=== PATIENT | female | born 1955 | race Caucasian/White ===

== ENCOUNTER → 2017-07-19 | Outpatient (CLI) | payer BC ==
[~2017-07-19] MED LIST: AMARYL PO; AMBIEN10 MG PO; COATED ASPIRIN325 M1 PO; COREG3.125 MG PO; LIPITOR PO; LIPITOR20 MG PO; LISINOPRIL20 MG PO; LOSARTAN-HCTZ1 EAC2 PO; METFORMIN HCL500 M1 PO; NEXIUM PO; VICOPROFEN 200-1 TAB PO; WELLBUTRIN XL150 M1 PO; WELLBUTRIN XL150 MG PO; ZEGERID 40 MG C1 CAP PO
--- NOTE | ~2017-07-19 | CT2 ---
[facility] A Service of [facility] RADIOLOGY TEXT RESULTS PATIENT: TG BURTON [facility] 57 UNIT #: [id number] AGE: [address]: Yoshi Castañeda MD SEX: F ORDER DR: [id number] [facility] [address]. [place], [place] [address] [id number] O MR#: [id number] #: [id number] NAME: TG BURTON : 1955 SEX: F STUDY DATE/TIME: 07/19/2017 12:45 UNIT: [facility] ROOM: STUDY DESCRIPTION: CT Abd and Pelv W Cont Attending Physician: Yoshi Castañeda M.D. Referring Physician: Yoshi Castañeda M.D. Ordering Physician: Yoshi Castañeda M.D. Primary Care Physician: Dennise Guzmán M.D. MEDICAL IMAGING REPORT This report is preliminary unless electronic signature is present EXAM CT abdomen and pelvis with contrast INDICATIONS Right-sided abdominal pain for the past 2 weeks. PROCEDURE Contrast-enhanced CT of the abdomen and pelvis. This CT exam was performed with one or more of the following radiation dose reduction techniques: automatic exposure control, adjustment of mA and/or kV according to patient size, and iterative reconstruction. COMPARISON STUDIES 04/25/2013 FINDINGS Abdomen with contrast: The included lung bases are clear. Nonspecific low-attenuation of the liver compared with the spleen on contrast-enhanced CT. No liver or splenic lesion. The kidneys, adrenal glands, pancreas are unremarkable. Previous cholecystectomy. The bowel loops are nondilated. Appendix is normal. Pelvis with contrast: Previous hysterectomy. No pelvic mass or fluid. No aggressive appearing bone lesion. IMPRESSION 1. No acute findings. 2. Normal appendix. 3. Nonspecific low-attenuation liver compared with the spleen [facility] of [facility] RADIOLOGY TEXT RESULTS PATIENT: TG BURTON [facility] 57 UNIT #: [id number] AGE: [address]: Yoshi Castañeda MD SEX: F ORDER DR: normal for the patient or reflect mild steatosis. Dictated by... Kingsley Hernandez M.D. THIS IS AN ELECTRONICALLY VERIFIED REPORT Kingsley Hernandez M.D. at 07/20/2017 12:11 PM CRISTOBAL/seb TD: 07/20/2017 03:04 JOB #: [id number] MEDICAL IMAGING REPORT Page 1 of 1 COPY
[2017-07-19 14:06] LABS: POC - CREATININE 0.88 mg/dL (0.44-1.03); POC - GFR >60.0 mL/min (>60)
== END | disposition home or self-care (01) ==
LOC: CCAT 11:09
PROVIDERS: Surgery
DX: R10.13 Epigastric pain (principal)
CPT/HCPCS: 74177; 82565; Q9967